=== PATIENT | male | born 1995 | race Caucasian/White ===

== ENCOUNTER → 2017-05-02 | Outpatient (CLI) | payer OTHER ==
[2017-05-02 21:34] LABS: LYME DISEASE AB IGG NEG (NEG)
[2017-05-02 21:35] LABS: LYME DISEASE AB IGM NEG (NEG)
[2017-05-02 21:48] LABS: SYNOVIAL FLUID APPEARANCE BLOODY; SYNOVIAL FLUID COLOR RED; SYNOVIAL FLUID MONONUC RELAT 8.4 %; SYNOVIAL FLUID POLYNUC RELAT 91.6 %
[2017-05-07 03:33] LABS: LYME DNA PCR CSF OR SYNOVIAL Not detected (Not Detected); LYME DNA SOURCE Synovial Fluid
== END | disposition home or self-care (01) ==
LOC: C.LAB 20:08
PROVIDERS: ATTEND Physician Assistant
DX: M25.562 Pain in left knee (principal); M25.462 Effusion, left knee